=== PATIENT | female | born 1965 | race Caucasian/White ===

== ENCOUNTER 2019-05-23 13:04 | Emergency (ER) | payer OTHER ==
[~2019-05-23] VITALS: Ht 152.4 cm; Wt 73.8 kg
[~2019-05-23 13:04] MED LIST: IBUP-1542 PO
[2019-05-23 13:08] VITALS: BP 133/66; PULSE 78; RESP 18; Ht 152.4 cm; Wt 73.8 kg
[2019-05-23] MEDS ORDERED: LIDOCAINE 1% (MDV) 20 ML INJ SC ONE (14:30)
[2019-05-23] MEDS ORDERED: BACITRACIN 0.9 GM OINT TOP ONE ×2 (14:30)
[2019-05-23] MEDS ORDERED: LIDOCAINE 4% CR TOP ONE ×2 (14:30)
--- NOTE | 2019-05-23 16:05 | ERD ---
ER Documentation Chief Complaint Chief Complaint L index finger lac from knife while preparing lunch HPI 54-year-old female presents with complaint of laceration to her left index finger after cutting it with a knife earlier today. Patient denies any numbness or impaired range of motion. States she is up-to-date on her vaccines. ROS All systems reviewed and are negative except as per history of present illness. Medications Home Meds Active Scripts Ibuprofen* (Motrin*) 600 Mg Tab, 600 MG PO Q6, #30 TAB Prov:MONTEZ TEJEDA 05/23/19 Allergies Allergies: Coded Allergies: No Known Allergy (Unverified , 05/23/19) PMhx/Soc Medical and Surgical Hx: pt denies Surgical Hx Hx Miscellaneous Medical Probl: Yes (duane de guzman) Hx Alcohol Use: No Hx Substance Use: No Hx Tobacco Use: No Smoking Status: Never smoker FmHx Family History: No diabetes, No coronary disease, No other Physical Exam Vitals Vital Signs Date Temp Pulse Resp B/P (MAP) Pulse Ox O2 O2 Flow FiO2 Time Delivery Rate 05/23/19 97.7 78 18 133/66 99 13:08 (88) Physical Exam Const: No acute distress Head: Atraumatic Eyes: Normal Conjunctiva ENT: Normal External Ears, Nose and Mouth. Neck: Full range of motion. No meningismus. Resp: Clear to auscultation bilaterally Cardio: Regular rate and rhythm, no murmurs Abd: Soft, non tender, non distended. Normal bowel sounds Skin: No petechiae or rashes Back: No midline or flank tenderness Ext: No cyanosis, or edema Neur: Awake and alert Psych: Normal Mood and Affect Hand - bilateral: Skin: Approximately 1 cm laceration noted to the DIP of second digit of left hand. Compartments: Soft Sensation: Intact shoulder/pinky/middle finger/thumb web space Bones: Nontender Snuffbox: Nontender Joints: No effusion Wrist: Flex/Ext: Normal Uln/Radial deviation: Normal Pron/Supination Normal Finger: Flex/Ext: Normal Add/abd: Normal Thumb: Flex/Ext: Normal Opposition: Normal Thumbs up: Normal Results 24 hrs Current Medications Medications Dose Sig/Marie Start Time Status Last (Trade) Ordered Route PRN Stop Time Admin Dose Reason Admin Lidocaine 1 applic ONCE ONCE 05/23/19 DC (Lmx 4% Plus) TOP 14:30 05/23/19 14:31 Lidocaine 20 ml ONCE ONCE 05/23/19 DC (Xylocaine SC 14:30 05/23/19 1% (Mdv) 20 14:31 ml) Bacitracin 1 applic ONCE ONCE 05/23/19 DC (Bacitracin TOP 14:30 05/23/19 Oint (Ud)) 14:31 Bacitracin 1 applic ONCE ONCE 05/23/19 DC (Bacitracin TOP 14:30 05/23/19 Oint (Ud)) 14:31 Lidocaine 1 applic ONCE ONCE 05/23/19 DC (Lmx 4% Plus) TOP 14:30 05/23/19 14:31 Procedures/MDM DIAGNOSTIC IMAGING REPORT Patient: REY SPENCER : 1965 Age: 54 Sex: F MR #: [id number] DOS: 05/23/19 1428 Ordering MD: MONTEZ TEJEDA Location: [facility] Room/Bed: PROCEDURE: XR Finger. CLINICAL INDICATION: Laceration TECHNIQUE: Three views of the left index finger. COMPARISON: None. FINDINGS: No acute fracture detected. No dislocation. Joint spaces are within normal limits for age. Mild soft tissue swelling laceration distally. No radiopaque foreign body. IMPRESSION: Soft tissue swelling/laceration without evidence of fracture or retained foreign body. RPTAT:AAJJ Physician Velasquez Date Time Electronically viewed and signed by Physician Velasquez on 05/23/2019 15:13 RF/ CC: MONTEZ TEJEDA [id number] MDM: Patient signed out to ABHINAV Gallegos for procedure and discharge. Departure Diagnosis: Primary Impression: Laceration Condition: Stable Patient Instructions: Laceration, Hand Referrals: [facility] YOU HAVE RECEIVED A MEDICAL SCREENING EXAM AND THE RESULTS INDICATE THAT YOU DO NOT HAVE A CONDITION THAT REQUIRES URGENT TREATMENT IN THE EMERGENCY DEPARTMENT. FURTHER EVALUATION AND TREATMENT OF YOUR CONDITION CAN WAIT UNTIL YOU ARE SEEN IN YOUR DOCTORS OFFICE WITHIN THE NEXT 1-2 DAYS. IT IS YOUR RESPONSIBILITY TO MAKE AN APPOINTMENT FOR FOLOW-UP CARE. IF YOU HAVE A PRIMARY DOCTOR --you should call your primary doctor and schedule an appointment IF YOU DO NOT HAVE A PRIMARY DOCTOR YOU CAN CALL OUR PHYSICIAN REFERRAL HOTLINE AT IF YOU CAN NOT AFFORD TO SEE A PHYSICIAN YOU CAN CHOSE FROM THE FOLLOWING [facility] [address] [facility] [address] [facility] [facility] [address] [facility] [address] [facility] [address] [facility]. [facility]. [address] Additional Instructions: Return to this facility in 2 DAYS for a follow-up exam.Return sooner if your condition worsens. MONTEZ TEJEDA May 23, 2019 16:05
[2019-05-23] MEDS ORDERED: IBUPROFEN 800 MG TAB PO ONE (16:30)
[2019-05-23] MEDS ORDERED: ACETAMINOPHEN 325 MG TAB ONE (17:08)
--- NOTE | 2019-05-24 17:19 | EN ---
Date/Time of Note Date/Time of Note DATE: 05/24/19 TIME: 17:18 ER Progress Note Loc passed this patient onto me after finishing his shift. I rexamined the laceration and ordered clean wound irrigation. I inserted 2 sutures for the patient on her left index finger without any complications. LACERATION: The patient was verbally consented prior to procedure. Patient was explained the risks, benefits and alternatives to this procedure. Location: left index finger Length: 1/2 inch Anesthesia: local 1% lidocaine, 5 cc Inspection: The wound was thoroughly explored and no foreign bodies, deep tissue, tendon or structural injuries were noted. Repair: The area was prepared and draped in the usual sterile manner with the wound exposed. 2 sutures were placed with good wound closure and wound approximation. Bleeding was minimal. The patient tolerated the procedure well with no complications. The wound was dressed with bacitracin and sterile gauze. The patient was neurovascularly intact post- procedure. Post- procedural wound care was discussed with the patient. Anesthesia: 1% lidocaine locally Location: left index finger Tendon/Joint/Nerves: No injury Foreign body: None detected after copious irrigation and exploration Technique: Simple Interrupted Sutures Complexity: No subcutaneous sutures/mucosal repair/edge excision Post Closure Length: 1/2 inch Patient's bleeding was easily controlled in the department and there is no indication of anemia. No evidence of compartment syndrome, neurologic injury, vascular injury, open joint, tendon laceration, or foreign body. Patient is appropriate for outpatient follow up. 48 hour wound check. Scar minimization instructions given. ROBERTO NAYAK PA-C May 24, 2019 17:19
== END 2019-05-23 17:10 | disposition home or self-care (01) ==
LOC: FTE 13:04
DX: S61.211A Laceration without foreign body of left index finger without damage to nail, initial encounter (principal); W26.0XXA Contact with knife, initial encounter; Y92.9 Unspecified place or not applicable
CPT/HCPCS: 73140